=== PATIENT | male | born 1950 | race Caucasian/White ===

== ENCOUNTER 2017-03-21 21:11 | Emergency (ER) | payer MEDICARE ==
[~2017-03-21 21:11] MED LIST: *DENIES; ALTA2.5 PO; ASAB PO; ASABAYER PO; ASAEC PO; COREG3 PO; COREG6 PO; CRESTOR40 MG PO; DULERA 200 MCG/13 GM INH; GLUCOPHAGE1000 MG PO; GLUCPH PO; L20 PO; L40 PO; LEVAQUIN5T PO; LEVAQUIN750 MG PO; NITROSTAT0.4 MG SL; P10 PO; PLAVIX PO; PRAVACHOL40 MG PO; PRIN5 PO; SEROQUEL25 PO; SEROQUEL50 MG PO; TESSALON200 MG PO; ZOCOR40 PO
[2017-03-21 23:18] LABS: BASOPHILS 0.4 %; BASOPHILS ABSOLUTE 0.06 10/3/uL (0.0-0.16); EOSINOPHILS 7.7 %; EOSINOPHILS ABSOLUTE 1.08 10/3/uL (0.0-0.53); HEMOGLOBIN 14.4 g/dL (13.6-17.8); IMMATURE GRANULOCYTES 0.4 %; IMMATURE GRANULOCYTES ABSOLUTE 0.05 10/3/uL (0.0-0.11); LYMPHOCYTES 24.7 %; LYMPHOCYTES ABSOLUTE 3.47 10/3/uL (0.67-4.30); MEAN CORPUS HGB CONC 34.1 g/dL (32.0-36.0); MEAN CORPUSCULAR HEMOGLOB 31.3 pg (26.0-34.0); MEAN CORPUSCULAR VOLUME 91.7 fL (80-100); MEAN PLATELET VOLUME 8.6 fL (9.2-13.0); MONOCYTES 5.6 %; MONOCYTES ABSOLUTE 0.79 10/3/uL (0.21-1.20); NEUTROPHILS 61.2 %; NEUTROPHILS ABSOLUTE 8.58 10/3/uL (2.02-8.40); RBC DISTRIBUTION WIDTH 13.8 % (12.0-16.0)
[2017-03-21 23:19] LABS: ER CBC TAT 0 Hrs 04 MinsNP; HEMATOCRIT 42.2 % (40.0-51.0); MANUAL DIFF NO %; PLATELET COUNT 318 10/3/uL (150-400)
[2017-03-21 23:25] LABS: PARTIAL THROMBO TIME 27.6 SEC (22.5-37.2); PROTIME (NOT ORD) 13.2 SEC (12.0-14.5)
[2017-03-21 23:36] LABS: BUN (BLOOD UREA NITROGEN) 13 MG/DL (6-23); CALCIUM, SERUM 9.8 MG/DL (8.5-10.4); CHLORIDE, SERUM 96 MMOL/L (96-112); CO2 (CARBON DIOXIDE) 34 MMOL/L (24-34); CREATININE 1.43 MG/DL (0.70-1.30); GFR AFRICAN AMERICAN 60 ML/MIN (>=60); GFR NON AFRICAN AMERICAN 51 ML/MIN (>=60); GLUCOSE, SERUM 117 MG/DL (60-99); POTASSIUM, SERUM 3.9 MMOL/L (3.5-5.3); SODIUM, SERUM 136 MMOL/L (135-148)
[2017-03-21 23:37] LABS: CHEST PAIN PROFILE TAT 0 Hrs 23 Mins; TROPONIN I 0.09 NG/ML (<0.05)
[2017-03-22 00:55] LABS: ALBUMIN 3.5 G/DL (3.5-5.0); ALKALINE PHOSPHATASE 349 U/L (45-117); DIRECT BILIRUBIN 0.2 MG/DL (0.0-0.4); INDIRECT BILIRUBIN(NOT ORDER) 0.6 MG/DL (0.1-0.9); SGOT(AST) 39 U/L (5-40); SGPT(ALT) 30 U/L (5-65); TOTAL BILIRUBIN 0.8 MG/DL (0-1.2); TOTAL PROTEIN 8.5 G/DL (6.0-8.5)
[2017-08-18] MEDS ORDERED: COREG6 PO (17:35)
[2017-08-18] MEDS ORDERED: L20 PO (17:35)
[2017-08-18] MEDS ORDERED: ASA5GR PO (17:36)
[2017-08-18] MEDS ORDERED: NITROSTAT0.4 MG SL (17:36)
[2017-08-18] MEDS ORDERED: GLUCOTROL5 PO (17:36)
[2017-08-18] MEDS ORDERED: KLONO5 PO (17:37)
[2017-08-18] MEDS ORDERED: REM15 PO (17:37)
[2017-08-18] MEDS ORDERED: CRESTOR40 MG PO (17:38)
[2017-08-18] MEDS ORDERED: ABILIFY5 PO (17:38)
[2017-08-18] MEDS ORDERED: SYMBICORT 160/41 INH INH (17:38)
[2017-08-18] MEDS ORDERED: CYMBALTA60 PO (17:38)
== END 2017-03-22 04:17 | disposition home or self-care (01) ==
LOC: ER 21:11
PROVIDERS: Emergency Medicine
DX: I71.2 Thoracic aortic aneurysm, without rupture (principal); I71.4 Abdominal aortic aneurysm, without rupture; R07.89 Other chest pain; F17.200 Nicotine dependence, unspecified, uncomplicated; J44.9 Chronic obstructive pulmonary disease, unspecified; E11.9 Type 2 diabetes mellitus without complications; F20.9 Schizophrenia, unspecified; Z95.5 Presence of coronary angioplasty implant and graft; Z95.810 Presence of automatic (implantable) cardiac defibrillator; I50.9 Heart failure, unspecified; Z79.899 Other long term (current) drug therapy; Z79.82 Long term (current) use of aspirin
CPT/HCPCS: 71020; 71275; 73630-LT; 74175; 80048; 80076; 83735; 83880; 84484; 85025; 85610; 85730; 93005; 99285; A9270-GY; Q9967

== ENCOUNTER 2017-03-25 16:29 | Inpatient (IN) | payer MEDICARE ==
[2017-03-22 20:56] LABS: HEMATOCRIT 41.6 % (40.0-51.0); HEMOGLOBIN 14.1 g/dL (13.6-17.8); MEAN CORPUS HGB CONC 33.9 g/dL (32.0-36.0); MEAN CORPUSCULAR HEMOGLOB 30.8 pg (26.0-34.0); MEAN CORPUSCULAR VOLUME 90.9 fL (80-100); MEAN PLATELET VOLUME 7.5 fL (6.8-10.8); PLATELET COUNT 382 10/3/uL (150-400); RBC DISTRIBUTION WIDTH 14.1 % (12.0-16.0); RED CELL COUNT 4.58 10/6/uL (4.7-6.1); WHITE BLOOD CELLS 13.5 10/3/uL (4.5-10.5)
[2017-03-22 21:27] LABS: ALBUMIN 3.7 G/DL (3.5-5.0); BUN (BLOOD UREA NITROGEN) 12 MG/DL (6-23); CALCIUM, SERUM 9.4 MG/DL (8.5-10.4); CHLORIDE, SERUM 97 MMOL/L (96-112); CREATININE 1.08 MG/DL (0.70-1.30); GFR AFRICAN AMERICAN 84 ML/MIN (>=60); GFR NON AFRICAN AMERICAN 72 ML/MIN (>=60); GLOBULIN 3.6 G/DL (2.5-4.1); POTASSIUM, SERUM 4.4 MMOL/L (3.5-5.3); SGOT(AST) 37 U/L (5-40); SGPT(ALT) 29 U/L (5-65); SODIUM, SERUM 138 MMOL/L (135-148); TOTAL BILIRUBIN 0.8 MG/DL (0-1.2); TOTAL PROTEIN 7.3 G/DL (6.0-8.5)
[2017-03-22 21:37] LABS: ALKALINE PHOSPHATASE 291 U/L (45-117); CO2 (CARBON DIOXIDE) 28 MMOL/L (24-34); GLUCOSE, SERUM 93 MG/DL (60-99)
--- NOTE | ~2017-03-25 | CN ---
Consultation Report [facility] [address] [place]. [address] NAME: RA HERNANDEZ : 54 STATUS : ADM IN PAT#: [id number] AGE: 66 ADM/REG DATE : 03/25/17 MR#: [id number] REPORT SERV DATE: 03/28/17 DICTATED BY: CAMPOS DE LA PAZ DATE: 03/28/17 REPORT STATUS : Draft TRANSCRIBED BY: MODCary DATE: 03/28/17 PSYCHIATRIC CONSULTATION DATE OF CONSULTATION: 03/28/2017 I reviewed the patient's current and old medical records. HISTORY OF PRESENT ILLNESS: He was admitted with increasing shortness of breath, associated with an exacerbation of congestive heart failure. I was consulted to address his history of schizophrenia. PAST PSYCHIATRIC HISTORY: He had previous psychiatric admissions to [facility] and [facility]. He was diagnosed with paranoid schizophrenia. He was followed by a mental health clinic in [place], [place] for many years. He dropped out of treatment there some years ago and he expressed no desire to return. I previously saw him in consultation on 04/14/2015, when he reported almost daily auditory hallucinations. At that time, he reluctantly agreed to restarting Seroquel 50 mg at bedtime. Subsequently, he stopped taking the Seroquel and he was unable to give any rationale for so doing. SOCIAL HISTORY: He lives with his son and his ex . FAMILY HISTORY: He reports that he has some cousins with psychiatric illness. MENTAL STATUS: He was awake, but somewhat drowsy. He was cooperative in attitude. His mood was mildly anxious. His affect was constricted in range. His thinking was logical. He had no delusions. He reported frequent auditory hallucinations. He was oriented to "02/26"- "2016"-"[facility]"-"Pending Sale To [facility]". DIAGNOSIS: Schizophrenia, paranoid type. RECOMMENDATIONS: He should continue on his current dose of Seroquel 50 mg at bedtime. After discharge, he should consider returning to [facility], which is a mental health clinic with a branch in [place], [place]. He said, he would consider doing this. I will sign off. JOSE/CASIE Campos De La Paz M.D. / [id number] CC: Consultation Report [place] [address] [address] NAME: RA HERNANDEZ : 54 STATUS : ADM IN PAT#: [id number] AGE: 66 ADM/REG DATE : 03/25/17 MR#: [id number] REPORT SERV DATE: 03/28/17 DICTATED BY: CAMPOS DE LA PAZ DATE: 03/28/17 REPORT STATUS : Draft TRANSCRIBED BY: MODL DATE: 03/28/17 Cait Tirado
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
--- NOTE | ~2017-03-25 | DS ---
Discharge Summary [facility] [address] [place]. [address] NAME: RA HERNANDEZ : 54 STATUS : DIS IN PAT#: [id number] AGE: 66 ADM/REG DATE : 03/25/17 MR#: [id number] REPORT SERV DATE: 03/29/17 DICTATED BY: YOHANA MCCLELLAN DATE: 03/28/17 REPORT STATUS : Draft TRANSCRIBED BY: CASIE DATE: 03/28/17 ADMISSION DATE: 03/25/2017 DISCHARGE DATE: 03/28/2017 CONDITION ON DISCHARGE: Stable. DISPOSITION: Discharged to home with Home Health. INSTRUCTIONS ON DISCHARGE: 1. For patient to follow up with operations vice president, hopefully a [facility] operations vice president, which we will set up as a new appointment within the next three weeks to four weeks. 2. Patient will also follow up with [facility] for his psychiatric issues for paranoid schizophrenia within the next one to two weeks. DIAGNOSES ON DISCHARGE: Include the followin. Non ST-segment elevation myocardial infarction or NSTEMI, which is stable right now-the patient is asymptomatic and no intervention has been planned per Cardiology. Dr. Saldana has evaluated the patient and medically optimized his treatment with no further intervention. The patient actually refused his cardiac catheterization again. 2. The patient with chronic systolic and diastolic heart failure and ischemic cardiomyopathy with an ejection fraction of 25%. 3. Status post AICD/pacer placement. 4. Coronary artery disease, non-ST elevation myocardial infarction in the past also. 5. Chronic kidney disease, stage III with baseline creatinine at 1.4, which is stable. 6. Non-insulin requiring diabetes mellitus, which is stable. 7. Chronic obstructive pulmonary disease, which is stable. 8. Schizophrenia, which has significantly affected the patient's medical decision making capacity off and on. CONSULTATIONS OBTAINED DURING THIS HOSPITALIZATION: Include cardiology consult and psychiatric consult by Dr. Martin who suggested that patient be on Seroquel 50 mg at nighttime till he is able to follow up at [facility]. BRIEF HOSPITAL COURSE: This patient is a 66-year-old male patient who was admitted from [facility]. Essentially, he was admitted with the diagnosis of possible NSTEMI and also acute exacerbation of systolic and diastolic heart failure. Cardiology was promptly consulted. However, again because of patient's paranoia, he refused cardiac catheterization and Dr. Saldana, the operations vice president, decided to manage him medically and optimize medical treatment. On the day of discharge, patient is awake, alert, and seems to be fairly reasonable and logical in making decisions and agrees to follow up with both Cardiology and Psychiatry. He has also received consultation by our psychiatrist, Dr. Martin, who suggests Seroquel 50 mg at bedtime. Since his medical management for coronary artery disease has been optimized, he will be sent home with the above advice. Discharge Summary [place] [id number] [facility] [place]. [address] NAME: RA HERNANDEZ : 54 STATUS : DIS IN PAT#: [id number] AGE: 66 ADM/REG DATE : 03/25/17 MR#: [id number] REPORT SERV DATE: 03/29/17 DICTATED BY: YOHANA MCCLELLAN DATE: 03/28/17 REPORT STATUS : Draft TRANSCRIBED BY: CASIE DATE: 03/28/17 MEDICATIONS UPON DISCHARGE: Will include the following: Seroquel 50 mg p.o. at bedtime. I have given him a prescription for this medication for 30 days. His other medications that he will be taking for his ischemic cardiomyopathy and chronic systolic and diastolic heart failure will include the following: Aspirin 81 mg once a day, Colace 100 mg p.o. twice a day, Coreg or carvedilol 6.25 mg p.o. b.i.d., statin which will include his home medication, potassium chloride, Prinivil 5 mg. We have advised him to continue his home medication of Crestor 40 mg once a day and not on Lipitor. This is because the patient states that he already has some medications at home and does not want to fill another medication. The patient already has a prescription for Nitrostat at home also. The patient's Plavix 75 mg p.o. daily will be resumed also. The patient will be on Lasix 40 mg p.o. b.i.d. The patient will also go back on his [place] 10/325 one p.o. q.6 hours p.r.n. for his back pain that he takes, Flexeril 10 mg p.o. b.i.d. that he takes for back pain also, and Zofran 8 mg p.o. t.i.d. p.r.n. for nausea. All these medications will be besides his Seroquel which he takes 50 mg at bedtime. LABORATORY DATA: Most recent labs I have on this patient include the following: On the day of discharge, his CBC has come back with WBC count of 12.4, hemoglobin 14.4, hematocrit 41.6, and platelet count of 365. His electrolyte profile shows that his sodium is 139, potassium 4.1, BUN 20, creatinine 1.3, which is his baseline. Blood cultures have come back with no growth at two days. Hence as he is afebrile and I see no evidence of any active ongoing infection other than mild elevation in WBC count, which is nonspecific, I would not continue this patient on any antibiotics at this time. His brain natriuretic peptide is 121, which seems to be his baseline. His hemoglobin A1c was also done, 03/25/2017, it came back at 6.9, reflecting fairly good diabetes control in this patient. Hence as long as he can take his diuretics and heart medications on a regular basis and take his Seroquel also on a regular basis, we could avoid further hospitalizations in this patient. The patient is being discharged home with Home Health in stable condition and I have spent about 40 minutes in coordinating discharge care of this patient including iepi-he-aqvd encounter and summarizing this discharge. REGGIE/CASIE Yohana Mcclellan M.D. / [id number]
--- NOTE | ~2017-03-25 | CN ---
Consultation Report [facility] [address] [place]. [address] NAME: RA HERNANDEZ : 54 STATUS : ADM IN PAT#: [id number] AGE: 66 ADM/REG DATE : 03/25/17 MR#: [id number] REPORT SERV DATE: 03/26/17 DICTATED BY: LOUIS SALDANA DATE: 03/26/17 REPORT STATUS : Draft TRANSCRIBED BY: MODCary DATE: 03/26/17 CARDIOLOGY CONSULTATION DATE OF CONSULTATION: 03/26/2017 REASON FOR CONSULTATION: Congestive heart failure exacerbation. HISTORY OF PRESENT ILLNESS: The patient is a 66-year-old male with known ischemic cardiomyopathy. Seen at [facility] Emergency Department with complaints of progressive dyspnea on exertion. Some reported chest discomfort, epigastric discomfort, and nausea. The patient is admitted to the Hospitalist Service. Consultation requested for further evaluation due to trivially elevated troponins. The patient currently denies chest pain. The patient is exceptionally poor historian. He is currently alert, but has great difficulty in answering questions with delays and has to be reminded. He is oriented to year and to his name, and is aware that he is at [facility]. He provides alternate answers to identical questions through the course of discussion. He does not reliably relay these. He is currently having no chest pain. History is taken primarily from medical records as the patient is an exceptionally poor historian. PAST MEDICAL HISTORY: Per admission history and physical of 04/14/2015. 1. Congestive heart failure with systolic, chronic with echocardiogram, 10/2016 demonstrating ejection fraction of 25%. 2. Coronary artery disease with remote coronary artery bypass grafting. 3. Paranoid schizophrenia. 4. History of COPD. 5. History of transient ischemic attack. 6. Gastroesophageal reflux. FAMILY HISTORY: Per medical records, previous family members with coronary artery disease, details unknown. SOCIAL HISTORY: Smokes two to three packs of cigarettes per day. ALLERGIES: NO KNOWN DRUG ALLERGIES. HOME MEDICATIONS: Aspirin 325 mg daily, carvedilol 6.25 mg b.i.d., Keflex 500 mg q.8 hours, Plavix 75 mg daily, Flexeril 10 mg b.i.d. p.r.n. for pain, Lasix 40 mg b.i.d., hydrocodone/acetaminophen 10/325 mg q.6h hours p.r.n. pain, lisinopril 5 mg daily, nitroglycerin sublingual p.r.n., Zofran 8 mg q.8 hours, and Crestor 40 mg. REVIEW OF SYSTEMS: Negative for all organ systems except per the history of present illness. Consultation Report [place] [address] [place]. [address] NAME: RA HERNANDEZ : 54 STATUS : ADM IN PAT#: [id number] AGE: 66 ADM/REG DATE : 03/25/17 MR#: [id number] REPORT SERV DATE: 03/26/17 DICTATED BY: LOUIS SALDANA DATE: 03/26/17 REPORT STATUS : Draft TRANSCRIBED BY: CASIE DATE: 03/26/17 PHYSICAL EXAMINATION: VITAL SIGNS: Blood pressure ranging 106/63 to 128/79, pulse 76, respirations 16 and unlabored, saturating 97% on 2 liters nasal cannula, weight 85 kg. GENERAL: Elderly male, in no acute distress, wearing nasal cannula oxygen. HEENT: Normal. NECK: Supple, no JVD or bruit, normal carotid upstroke bilaterally, no thyromegaly. CHEST: Well-healed sternotomy scar. The sternum is stable. Pacemaker implant site noted in the left infraclavicular region. LUNGS: Crackles are noted in the bases bilaterally. Diffuse decreased air movement in all lung mercado. CARDIOLOGY: Regular rhythm, normal S1, S2, no thrill, no murmur, rubs or gallops, normal PMI. ABDOMEN: Bowel sounds positive, soft, nontender, and nondistended. No masses or aortic bruits. No hepatosplenomegaly or hepatojugular reflux. EXTREMITIES: No edema. Normal pulses. No clubbing or cyanosis. SKIN: Warm and dry, no significant rash. NEUROLOGIC: Alert and oriented x 3. Appropriate mood. EKG: Sinus rhythm. Right bundle branch what appears to be biventricular pacing. LABORATORY DATA: Sodium 143, potassium 3.5, chloride 103, BUN 15, creatinine 1.22, GFR 72, glucose 112. WBC 10.5, hemoglobin 12.9, hematocrit 37.1, platelets 310, beta-natriuretic peptide elevated at 538, troponin 0.07, 0.06. IMPRESSION: 1. Mouvi-cu-pwdvxgu systolic congestive heart failure exacerbation. Currently being diuresed. Continue cardiac medications. 2. Mildly elevated troponin. No clear anginal symptoms by description, although the patient is a terrible historian. The patient has no acute EKG changes suggestive of ongoing ischemia or infarct. However, he has a paced rhythm which may hide the same. We will manage medically at this time given his absence of symptoms. 3. Schizophrenia - the patient is exceptionally poor historian and this is unclear if he would be competent for decision making regarding any invasive treatment should this decision be made. We will consider a formal psychiatric evaluation during hospitalization to evaluate for competence. Thank you for the opportunity to see the patient in consultation. We will continue to follow the patient with you. GREG/CASIE Shae Vasquez Consultation Report [address] [address] NAME: RA HERNANDEZ : 54 STATUS : ADM IN PAT#: [id number] AGE: 66 ADM/REG DATE : 03/25/17 MR#: [id number] REPORT SERV DATE: 03/26/17 DICTATED BY: LOUIS SALDANA DATE: 03/26/17 REPORT STATUS : Draft TRANSCRIBED BY: CASIE DATE: 03/26/17 Cait Saldana / [id number] CC: Cait Tirado
[2017-03-25] MEDS ORDERED: K500 PO (17:58)
[2017-03-25] MEDS ORDERED: L40 PO (18:02)
[2017-03-25] MEDS ORDERED: NORCO1 TAB PO (18:14)
[2017-03-25] MEDS ORDERED: ZOFRAN8 PO (18:15)
[2017-03-25] MEDS ORDERED: FLEX PO (18:16)
[2017-03-25 20:30] LABS: TROPONIN I 0.07 NG/ML (<0.05)
[2017-03-25 20:40] LABS: B NATRIURETIC PEPTIDE (BNP) 537.7 PG/ML (< 100.0)
[2017-03-25 21:11] LABS: PROCALCITONIN 0.34 ng/mL (<0.5)
[2017-03-25 21:49] LABS: GLYCOHEMOGLOBIN (HbA1c) 6.9 % (4.7-6.1)
[2017-03-26 03:35] LABS: BASOPHILS 0.8 %; BASOPHILS ABSOLUTE 0.08 10/3/uL (0.0-0.16); EOSINOPHILS 10.3 %; EOSINOPHILS ABSOLUTE 1.08 10/3/uL (0.0-0.53); HEMOGLOBIN 12.9 g/dL (13.6-17.8); IMMATURE GRANULOCYTES 0.5 %; IMMATURE GRANULOCYTES ABSOLUTE 0.05 10/3/uL (0.0-0.11); LYMPHOCYTES 28.4 %; LYMPHOCYTES ABSOLUTE 2.98 10/3/uL (0.67-4.30); MEAN CORPUS HGB CONC 34.8 g/dL (32.0-36.0); MEAN CORPUSCULAR HEMOGLOB 32.1 pg (26.0-34.0); MEAN CORPUSCULAR VOLUME 92.3 fL (80-100); MEAN PLATELET VOLUME 8.9 fL (9.2-13.0); MONOCYTES 7.8 %; MONOCYTES ABSOLUTE 0.82 10/3/uL (0.21-1.20); NEUTROPHILS 52.2 %; NEUTROPHILS ABSOLUTE 5.48 10/3/uL (2.02-8.40); PLATELET COUNT 310 10/3/uL (150-400); RBC DISTRIBUTION WIDTH 13.8 % (12.0-16.0); RED CELL COUNT 4.02 10/6/uL (4.7-6.1); WHITE BLOOD CELLS 10.5 10/3/uL (4.5-10.5)
[2017-03-26 03:36] LABS: HEMATOCRIT 37.1 % (40.0-51.0); MANUAL DIFF NO %
[2017-03-26 03:50] LABS: BUN (BLOOD UREA NITROGEN) 15 MG/DL (6-23); CALCIUM, SERUM 9.3 MG/DL (8.5-10.4); CHLORIDE, SERUM 103 MMOL/L (96-112); CO2 (CARBON DIOXIDE) 31 MMOL/L (24-34); CREATININE 1.22 MG/DL (0.70-1.30); GFR AFRICAN AMERICAN 72 ML/MIN (>=60); GFR NON AFRICAN AMERICAN 62 ML/MIN (>=60); GLUCOSE, SERUM 112 MG/DL (60-99); POTASSIUM, SERUM 3.5 MMOL/L (3.5-5.3); SODIUM, SERUM 143 MMOL/L (135-148); TROPONIN I 0.06 NG/ML (<0.05)
[2017-03-27 07:07] LABS: BASOPHILS 0.7 %; BASOPHILS ABSOLUTE 0.08 10/3/uL (0.0-0.16); EOSINOPHILS 9.1 %; EOSINOPHILS ABSOLUTE 1.03 10/3/uL (0.0-0.53); HEMATOCRIT 37.1 % (40.0-51.0); HEMOGLOBIN 12.7 g/dL (13.6-17.8); IMMATURE GRANULOCYTES 0.4 %; IMMATURE GRANULOCYTES ABSOLUTE 0.05 10/3/uL (0.0-0.11); LYMPHOCYTES 28.9 %; LYMPHOCYTES ABSOLUTE 3.26 10/3/uL (0.67-4.30); MEAN CORPUS HGB CONC 34.2 g/dL (32.0-36.0); MEAN CORPUSCULAR HEMOGLOB 31.2 pg (26.0-34.0); MEAN CORPUSCULAR VOLUME 91.2 fL (80-100); MEAN PLATELET VOLUME 8.8 fL (9.2-13.0); MONOCYTES ABSOLUTE 0.79 10/3/uL (0.21-1.20); NEUTROPHILS 53.9 %; NEUTROPHILS ABSOLUTE 6.08 10/3/uL (2.02-8.40); PLATELET COUNT 299 10/3/uL (150-400); RBC DISTRIBUTION WIDTH 14.1 % (12.0-16.0); RED CELL COUNT 4.07 10/6/uL (4.7-6.1); WHITE BLOOD CELLS 11.3 10/3/uL (4.5-10.5)
[2017-03-27 07:10] LABS: MANUAL DIFF NO %
[2017-03-27 07:16] LABS: BUN (BLOOD UREA NITROGEN) 20 MG/DL (6-23); CALCIUM, SERUM 9.4 MG/DL (8.5-10.4); CHLORIDE, SERUM 102 MMOL/L (96-112); CO2 (CARBON DIOXIDE) 28 MMOL/L (24-34); CREATININE 1.33 MG/DL (0.70-1.30); GFR AFRICAN AMERICAN 65 ML/MIN (>=60); GFR NON AFRICAN AMERICAN 56 ML/MIN (>=60); GLUCOSE, SERUM 116 MG/DL (60-99); POTASSIUM, SERUM 3.6 MMOL/L (3.5-5.3); SODIUM, SERUM 140 MMOL/L (135-148)
[2017-03-28 06:32] LABS: BASOPHILS 0.7 %; BASOPHILS ABSOLUTE 0.09 10/3/uL (0.0-0.16); EOSINOPHILS 8.7 %; EOSINOPHILS ABSOLUTE 1.08 10/3/uL (0.0-0.53); HEMATOCRIT 41.6 % (40.0-51.0); HEMOGLOBIN 14.4 g/dL (13.6-17.8); IMMATURE GRANULOCYTES 0.5 %; IMMATURE GRANULOCYTES ABSOLUTE 0.06 10/3/uL (0.0-0.11); LYMPHOCYTES 28.9 %; LYMPHOCYTES ABSOLUTE 3.58 10/3/uL (0.67-4.30); MEAN CORPUS HGB CONC 34.6 g/dL (32.0-36.0); MEAN CORPUSCULAR HEMOGLOB 31.6 pg (26.0-34.0); MEAN CORPUSCULAR VOLUME 91.2 fL (80-100); MEAN PLATELET VOLUME 8.7 fL (9.2-13.0); MONOCYTES 5.9 %; MONOCYTES ABSOLUTE 0.73 10/3/uL (0.21-1.20); NEUTROPHILS 55.3 %; NEUTROPHILS ABSOLUTE 6.86 10/3/uL (2.02-8.40); PLATELET COUNT 365 10/3/uL (150-400); RBC DISTRIBUTION WIDTH 13.8 % (12.0-16.0); RED CELL COUNT 4.56 10/6/uL (4.7-6.1); WHITE BLOOD CELLS 12.4 10/3/uL (4.5-10.5)
[2017-03-28 06:33] LABS: MANUAL DIFF NO %
[2017-03-28 06:46] LABS: BUN (BLOOD UREA NITROGEN) 20 MG/DL (6-23); CALCIUM, SERUM 9.6 MG/DL (8.5-10.4); CHLORIDE, SERUM 104 MMOL/L (96-112); CO2 (CARBON DIOXIDE) 27 MMOL/L (24-34); CREATININE 1.35 MG/DL (0.70-1.30); GFR AFRICAN AMERICAN 64 ML/MIN (>=60); GFR NON AFRICAN AMERICAN 55 ML/MIN (>=60); GLUCOSE, SERUM 119 MG/DL (60-99); POTASSIUM, SERUM 4.1 MMOL/L (3.5-5.3); SODIUM, SERUM 139 MMOL/L (135-148)
[2017-03-28] MEDS ORDERED: SEROQUEL25 PO (15:15)
[2017-08-18] MEDS ORDERED: COREG6 PO (17:35)
[2017-08-18] MEDS ORDERED: L20 PO (17:35)
[2017-08-18] MEDS ORDERED: GLUCOTROL5 PO (17:36)
[2017-08-18] MEDS ORDERED: ASA5GR PO (17:36)
[2017-08-18] MEDS ORDERED: NITROSTAT0.4 MG SL (17:36)
[2017-08-18] MEDS ORDERED: REM15 PO (17:37)
[2017-08-18] MEDS ORDERED: KLONO5 PO (17:37)
[2017-08-18] MEDS ORDERED: SYMBICORT 160/41 INH INH (17:38)
[2017-08-18] MEDS ORDERED: ABILIFY5 PO (17:38)
[2017-08-18] MEDS ORDERED: CRESTOR40 MG PO (17:38)
[2017-08-18] MEDS ORDERED: CYMBALTA60 PO (17:38)
== END 2017-03-28 17:20 | disposition home or self-care (01) | DRG 280 ==
LOC: 7NO 16:29
PROVIDERS: Physician Assistant Medical
DX: I21.4 Non-ST elevation (NSTEMI) myocardial infarction (principal); I50.43 Acute on chronic combined systolic (congestive) and diastolic (congestive) heart failure; E11.22 Type 2 diabetes mellitus with diabetic chronic kidney disease; I71.2 Thoracic aortic aneurysm, without rupture; F20.0 Paranoid schizophrenia; N18.3 Chronic kidney disease, stage 3 (moderate); Z95.810 Presence of automatic (implantable) cardiac defibrillator; I25.10 Atherosclerotic heart disease of native coronary artery without angina pectoris; J44.9 Chronic obstructive pulmonary disease, unspecified; Z86.73 Personal history of transient ischemic attack (TIA), and cerebral infarction without residual deficits; Z79.82 Long term (current) use of aspirin; I71.4 Abdominal aortic aneurysm, without rupture
CPT/HCPCS: 71010; 71275; 73630-LT; 74175; 78452; 80048; 80053; 82150; 82962; 83036; 83880; 84145; 84484; 85025; 85027; 87040; 93017; 93288; A9270-GY; A9502; C8929; J0153; Q9957; Q9967